=== PATIENT | female | born 1960 | race Caucasian/White ===

== ENCOUNTER 2017-08-05 16:16 | Emergency (ER) | payer OTHER, SELFPAY ==
[~2017-08-05] VITALS: Ht 157.5 cm; Wt 63.5 kg
[~2017-08-05 16:16] MED LIST: ARTHRITIS PO; ATIVAN0.5 MG PO; AZITHROMYCIN 2250 MG PO; BENTYL 20 MG TA20 M1 PO; BISACODYL SUPP10 MG RECTAL; CARAFATE 1 GM TA1 G1 PO; CHOLESTYRAMINE P4 GM PO; CIPRO500 M1 PO; CIPRO500 MG PO; COLACE100 MG PO; COMPAZINE25 MG RECTAL; CYCLOBENZAPRINE5 MG PO; DILAUDID1 MG/1 ML IV PUSH; DIPHENHYDRAM50 MG/M2 IV PUSH; DOC-Q-LACE100 MG PO; ENOXAPARIN40 MG/0.1 SUBQ; FEVERALL650 MG RECTAL; FLAGYL500 M1 PO; FLAGYL500 MG PO; HYDROCODON-ACE1 EAC7 PO; HYDROCODONE-AP1 EAC6 PO; HYDROCODONE-APA1 TA1 PO; HYDROXYZINE; HYDROXYZINE HCL25 M1 PO; HYOSCYAMINE0.125 MG PO; IBUPROFEN 800800 MG PO; IRON325 PO; MACROBID 100 M100 M2 PO; MIRALAX17 GM PO; MIRALAX255 GM PO; MOBIC15 MG PO; MOBIC7.5 MG PO; NAPROSYN500 MG PO; NEO-POLYMYXIN-H10 ML OT; NORCO 5-325 TA1 EACH PO; OCEAN45 ML NASAL; ONDANSETRON HCL4 M2 PO; PANTOPRAZOLE SO40 M1 PO; PAXIL 20 MG TAB20 M1 PO; PAXIL10 MG; PHENERGAN 25 MG25 M1 PO; PHENERGAN 25 MG25 MG PO; PROTONIX PO; PROTONIX40 M1 PO; PROZAC10 MG; PROZAC20 MG PO; REGLAN 10 MG TA10 MG PO; REGLAN 5 MG TAB5 MG PO; SENOKOT-S1 TA1 PO; TPN ELECTROLYTE20 ML IV; TRAZODONE 150150 M1 PO; TRAZODONE HCL100 MG; TRAZODONE HCL50 MG PO; ULTRACET TABLE1 EACH PO; ULTRACET TABLET1 TAB PO; UNASYN 3 GM VIAL3 G1 IVPB; VISTARIL 25 MG25 M1 PO; ZANAFLEX4 MG PO; ZOFRAN IV PUSH; ZOFRAN ODT4 MG PO
[2017-08-05] MEDS ORDERED: CARAFATE 1 GM TA1 G1 PO (16:32)
[2017-08-05] MEDS ORDERED: ATIVAN1 MG PO (16:33)
[2017-08-05 16:53] LABS: ABSOLUTE BASOPHILS 0.1 thou/uL (0.0-0.2); ABSOLUTE LYMPHOCYTES 1.5 thou/uL (0.8-5.3); ABSOLUTE MONOCYTES 0.4 thou/uL (0.0-1.2); ABSOLUTE NEUTROPHILS 6.4 thou/uL (1.6-8.1); EOSINOPHILS 0.5 %; HEMATOCRIT 39.1 % (37.0-47.0); LYMPHOCYTES 17.7 %; MCH 28.5 pg (26.0-34.0); MCHC 33.2 g/dL (28.0-37.0); MCV 85.8 fL (80.0-100.0); MONOCYTES 4.8 %; MPV 7.6 fl. (7.2-11.1); NUCLEATED RBCS 0 /100WBC; PLATELET COUNT* 338 thou/uL (150-400); RBC 4.56 mil/uL (4.20-5.00); RDW-CV 14.5 % (10.5-14.5); WBC 8.5 thou/uL (4.0-11.0)
[2017-08-05 17:00] LABS: CALCIUM 9.4 mg/dL (8.5-10.1); CREATININE 0.9 mg/dL (0.6-1.3); POTASSIUM 3.7 mmol/L (3.5-5.1)
[2017-08-05 17:05] LABS: ALBUMIN 3.5 g/dL (3.4-5.0); TOTAL BILIRUBIN 0.2 mg/dL (<0.1-1.0); TOTAL PROTEIN 8.6 g/dL (6.4-8.2)
[2017-08-05 17:30] LABS: ALCOHOL < 10 mg/dL (<10); SALICYLATE < 2.8 mg/dL (2.8-20.0)
[2017-08-05 17:33] LABS: ACETAMINOPHEN < 2 ug/mL (10-30)
[2017-08-05 18:17] LABS: URINE BILIRUBIN NEGATIVE (Negative); URINE BLOOD NEGATIVE (Negative); URINE CLARITY CLEAR; URINE COLOR YELLOW; URINE GLUCOSE-RANDOM NEGATIVE (Negative); URINE KETONES NEGATIVE (Negative); URINE LEUKOCYTES-REFLEX NEGATIVE (Negative); URINE NITRITE-REFLEX NEGATIVE (Negative); URINE PROTEIN NEGATIVE (Negative); URINE UROBILINOGEN 0.2 E.U./dl (0.2-1.0)
[2017-08-05 18:24] LABS: AMP/METHAMP POSITIVE (Negative); BARBITURATES Negative (Negative); BENZODIAZEPINES Negative (Negative); COCAINE Negative (Negative); METHADONE Negative (Negative); OPIATES Negative (Negative); PCP Negative (Negative); THC Negative (Negative)
[2017-08-05 20:41] VITALS: BP 146/74
== END 2017-08-05 20:42 | disposition home or self-care (01) ==
LOC: M.ERS 16:16
PROVIDERS: Family Medicine
DX: F32.9 Major depressive disorder, single episode, unspecified (principal); R45.851 Suicidal ideations; Z86.2 Personal history of diseases of the blood and blood-forming organs and certain disorders involving the immune mechanism; Z88.8 Allergy status to other drugs, medicaments and biological substances

== ENCOUNTER → 2017-11-09 | Outpatient (CLI) | payer OTHER ==
[~2017-11-09] MED LIST changes: +ATIVAN1 MG PO; +CEFDINIR300 MG PO; +ZANAFLEX2 MG PO; +ZOFRAN ODT4 MG DISSOLVE
== END ==
LOC: M.RAD 15:25
DX: Z12.31 Encounter for screening mammogram for malignant neoplasm of breast (principal)

== ENCOUNTER → 2017-11-18 | Outpatient (CLI) | payer OTHER | LOC: M.RAD 08:57 | DX: N91.2 Amenorrhea, unspecified (principal); M25.552 Pain in left hip; F41.8 Other specified anxiety disorders; Z78.0 Asymptomatic menopausal state ==

== ENCOUNTER 2017-12-17 13:36 | Inpatient (IN) | payer OTHER, SELFPAY ==
[2017-12-17] VITALS (8 sets, daily range): BP systolic 82–140; BP diastolic 40–77
[~2017-12-17] VITALS: Ht 157.5 cm; Wt 79.4 kg
[~2017-12-17 13:36] MED LIST changes: -CEFDINIR300 MG PO; -ZANAFLEX2 MG PO; -ZOFRAN ODT4 MG DISSOLVE
[2017-12-17] MEDS ORDERED: ZANAFLEX2 MG PO (13:37)
[2017-12-17] MEDS ORDERED: PROZAC20 MG PO (13:38)
[2017-12-17] MEDS ORDERED: PROTONIX40 M1 PO (13:39)
[2017-12-17] MEDS ORDERED: ZOFRAN ODT4 MG DISSOLVE (13:40)
[2017-12-17] MEDS ORDERED: CEFDINIR300 MG PO (13:40)
[2017-12-17 14:16] LABS: ABSOLUTE BASOPHILS 0.1 thou/uL (0.0-0.2); ABSOLUTE EOSINOPHILS 0.1 thou/uL (0.0-0.7); ABSOLUTE LYMPHOCYTES 1.9 thou/uL (0.8-5.3); ABSOLUTE MONOCYTES 0.5 thou/uL (0.0-1.2); ABSOLUTE NEUTROPHILS 4.1 thou/uL (1.6-8.1); BASOPHILS 1.1 %; EOSINOPHILS 1.8 %; HEMATOCRIT 36.6 % (37.0-47.0); HEMOGLOBIN 11.9 gm/dL (12.0-15.0); LYMPHOCYTES 27.9 %; MCH 26.3 pg (26.0-34.0); MCHC 32.6 g/dL (28.0-37.0); MCV 80.6 fL (80.0-100.0); MONOCYTES 7.2 %; MPV 8.1 fl. (7.2-11.1); NUCLEATED RBCS 0 /100WBC; PLATELET COUNT* 268 thou/uL (150-400); RBC 4.54 mil/uL (4.20-5.00); WBC 6.7 thou/uL (4.0-11.0)
[2017-12-17 14:18] LABS: CALCIUM 8.9 mg/dL (8.5-10.1); CREATININE 0.9 mg/dL (0.6-1.3); POTASSIUM 3.4 mmol/L (3.5-5.1)
[2017-12-17 14:23] LABS: ALBUMIN 3.3 g/dL (3.4-5.0); TOTAL BILIRUBIN 0.2 mg/dL (<0.1-1.0); TOTAL PROTEIN 7.9 g/dL (6.4-8.2)
[2017-12-17 14:29] LABS: SALICYLATE < 2.8 mg/dL (2.8-20.0)
[2017-12-17 14:30] LABS: ACETAMINOPHEN < 2 ug/mL (10-30); ALCOHOL < 10 mg/dL (<10)
[2017-12-17 14:52] LABS: URINE BILIRUBIN NEGATIVE (Negative); URINE BLOOD NEGATIVE (Negative); URINE CLARITY CLEAR; URINE COLOR STRAW; URINE GLUCOSE-RANDOM NEGATIVE (Negative); URINE KETONES NEGATIVE (Negative); URINE LEUKOCYTES-REFLEX NEGATIVE (Negative); URINE NITRITE-REFLEX NEGATIVE (Negative); URINE PROTEIN NEGATIVE (Negative); URINE SPECIFIC GRAVITY 1.015 (1.005-1.030); URINE UROBILINOGEN 0.2 E.U./dl (0.2-1.0)
[2017-12-17 15:01] LABS: AMP/METHAMP Negative (Negative); BARBITURATES Negative (Negative); BENZODIAZEPINES Negative (Negative); COCAINE Negative (Negative); METHADONE Negative (Negative); OPIATES Negative (Negative); PCP Negative (Negative); THC POSITIVE (Negative)
[2017-12-18] VITALS (12 sets, daily range): BP systolic 78–110; BP diastolic 41–55
[2017-12-18 03:58] LABS: ABSOLUTE BASOPHILS 0.1 thou/uL (0.0-0.2); ABSOLUTE EOSINOPHILS 0.1 thou/uL (0.0-0.7); ABSOLUTE LYMPHOCYTES 1.4 thou/uL (0.8-5.3); ABSOLUTE MONOCYTES 0.4 thou/uL (0.0-1.2); ABSOLUTE NEUTROPHILS 3.8 thou/uL (1.6-8.1); BASOPHILS 1.1 %; HEMATOCRIT 31.2 % (37.0-47.0); HEMOGLOBIN 10.1 gm/dL (12.0-15.0); LYMPHOCYTES 24.8 %; MCH 26.2 pg (26.0-34.0); MCHC 32.2 g/dL (28.0-37.0); MCV 81.2 fL (80.0-100.0); MONOCYTES 6.8 %; NUCLEATED RBCS 0 /100WBC; PLATELET COUNT* 231 thou/uL (150-400); POLYS 65.3 %; RBC 3.85 mil/uL (4.20-5.00); RDW-CV 16.3 % (10.5-14.5); WBC 5.8 thou/uL (4.0-11.0)
[2017-12-18 04:00] LABS: CALCIUM 7.9 mg/dL (8.5-10.1); CREATININE 0.9 mg/dL (0.6-1.3)
[2017-12-19] VITALS: BP 96/49
[2017-12-19 04:05] VITALS: BP 91/53
[2017-12-19 05:07] LABS: ABSOLUTE EOSINOPHILS 0.1 thou/uL (0.0-0.7); ABSOLUTE LYMPHOCYTES 1.7 thou/uL (0.8-5.3); ABSOLUTE MONOCYTES 0.4 thou/uL (0.0-1.2); ABSOLUTE NEUTROPHILS 3.8 thou/uL (1.6-8.1); BASOPHILS 0.8 %; HEMATOCRIT 29.1 % (37.0-47.0); HEMOGLOBIN 9.5 gm/dL (12.0-15.0); LYMPHOCYTES 28.2 %; MCH 26.4 pg (26.0-34.0); MCHC 32.6 g/dL (28.0-37.0); MCV 80.8 fL (80.0-100.0); MONOCYTES 6.8 %; MPV 8.5 fl. (7.2-11.1); NUCLEATED RBCS 0 /100WBC; PLATELET COUNT* 207 thou/uL (150-400); POLYS 62.2 %; RDW-CV 15.6 % (10.5-14.5); WBC 6.1 thou/uL (4.0-11.0)
[2017-12-19 05:53] LABS: ALBUMIN 2.4 g/dL (3.4-5.0); CALCIUM 7.9 mg/dL (8.5-10.1); CREATININE 0.9 mg/dL (0.6-1.3); POTASSIUM 3.9 mmol/L (3.5-5.1); TOTAL BILIRUBIN 0.2 mg/dL (<0.1-1.0); TOTAL PROTEIN 5.6 g/dL (6.4-8.2)
[2017-12-19 07:30] VITALS: BP 97/52
[2017-12-19 11:37] VITALS: BP 102/54
[2017-12-20 10:11] LABS: CK TOTAL (MAYO) 41 U/L (24-173)
--- NOTE | 2017-12-20 11:27 | EKG ---
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 : 1960 Requested By: Mikhail Garcia Order Number: [id number] MD: Denver Bobby Measurements Intervals [place] Rate: 80 P: 33 NH: 143 QRS: 55 QRSD: 86 T: 64 QT: 407 QTc: 470 Interpretive Statements Sinus rhythm Abnormal R-wave progression, early transition Borderline repolarization abnormality Compared to ECG 10/24/2016 21:54:11 No significant changes Electronically Signed On 12-20-2017 11:27:03 CDT by Denver Bobby [email or web address] <ELECTRONICALLY SIGNED> By: Denver Bobby MD, [facility] 12/20/17 1127 1342 1342 Denver Bobby MD, [facility] /EPI
[2017-12-21 19:12] LABS: CK MACRO TYPE I 0 % (Not Observed); CK MACRO TYPE II 0 % (Not Observed); CPK BB (%) 0 % (0); CPK MM (%) 100 % (97-100)
== END 2017-12-19 14:39 | DRG 917 ==
LOC: M.ERS 13:36 → M.2W 15:44 → M.TBA-ER 15:44 → M.ICU 15:44 → M.2W 12-18 16:55
PROVIDERS: Emergency Medicine Emergency Medical Services; ADMIT Internal Medicine
DX: T42.4X2A Poisoning by benzodiazepines, intentional self-harm, initial encounter (principal); G93.40 Encephalopathy, unspecified; T43.222A Poisoning by selective serotonin reuptake inhibitors, intentional self-harm, initial encounter; T43.212A Poisoning by selective serotonin and norepinephrine reuptake inhibitors, intentional self-harm, initial encounter; D64.9 Anemia, unspecified; F41.9 Anxiety disorder, unspecified; F32.9 Major depressive disorder, single episode, unspecified; F12.10 Cannabis abuse, uncomplicated; Z88.8 Allergy status to other drugs, medicaments and biological substances; Y92.89 Other specified places as the place of occurrence of the external cause; Z90.49 Acquired absence of other specified parts of digestive tract; Z90.721 Acquired absence of ovaries, unilateral; Z90.711 Acquired absence of uterus with remaining cervical stump; Z98.890 Other specified postprocedural states

== ENCOUNTER 2018-03-02 20:06 | Inpatient (IN) | payer OTHER, SELFPAY ==
[~2018-03-02] VITALS: Ht 157.5 cm; Wt 72.1 kg
[~2018-03-02 20:06] MED LIST changes: +CEFDINIR300 MG PO; +ZANAFLEX2 MG PO; +ZOFRAN ODT4 MG DISSOLVE
[2018-03-02 20:17] VITALS: BP 137/71
[2018-03-02 20:35] LABS: ABSOLUTE BASOPHILS 0.1 thou/uL (0.0-0.2); ABSOLUTE EOSINOPHILS 0.2 thou/uL (0.0-0.7); ABSOLUTE MONOCYTES 0.6 thou/uL (0.0-1.2); ABSOLUTE NEUTROPHILS 4.6 thou/uL (1.6-8.1); BASOPHILS 1.3 %; EOSINOPHILS 2.1 %; HEMATOCRIT 32.2 % (37.0-47.0); HEMOGLOBIN 10.5 gm/dL (12.0-15.0); LYMPHOCYTES 26.8 %; MCH 25.8 pg (26.0-34.0); MCHC 32.5 g/dL (28.0-37.0); MCV 79.5 fL (80.0-100.0); MONOCYTES 7.5 %; MPV 7.8 fl. (7.2-11.1); NUCLEATED RBCS 0 /100WBC; PLATELET COUNT* 332 thou/uL (150-400); POLYS 62.3 %; RBC 4.05 mil/uL (4.20-5.00); RDW-CV 17.4 % (10.5-14.5); WBC 7.5 thou/uL (4.0-11.0)
[2018-03-02 20:47] LABS: ANION GAP 6 mmol/L (7-16); BUN 21 mg/dL (7-18); CALCIUM 8.4 mg/dL (8.5-10.1); CHLORIDE 104 mmol/L (98-107); CO2 29 mmol/L (21-32); GLUCOSE 123 mg/dL (70-99); POTASSIUM 3.6 mmol/L (3.5-5.1); SODIUM 139 mmol/L (136-145)
[2018-03-02 20:49] LABS: APTT 24.6 Seconds (25.0-31.3); PROTIME 9.4 Seconds (9.20-11.50)
[2018-03-02 21:02] LABS: ALKALINE PHOSPHATASE 98 U/L (46-116); CK-MB MASS < 0.5 ng/mL (<0.5-3.6); LIPASE 251 U/L (73-393); MAGNESIUM 2.2 mg/dL (1.8-2.4); NT-PRO BRAIN NAT PEPTIDE 90 pg/mL (<300); SGOT 21 U/L (15-37); SGPT 16 U/L (30-65); TOTAL BILIRUBIN 0.1 mg/dL (<0.1-1.0); TOTAL PROTEIN 7.8 g/dL (6.4-8.2); TROPONIN-I LEVEL <0.06 ng/mL (<0.06)
[2018-03-02 22:00] VITALS: BP 101/53
[2018-03-02 22:36] VITALS: BP 105/52
[2018-03-03 04:00] VITALS: BP 101/60
--- NOTE | 2018-03-03 08:03 | NUR ---
PT ADMITTED TO ROOM 214 DURING THIS SHIFT; VSS, A+OX4, DENIES CHEST PAIN, SR ON TELEMETRY. SHE IS ABLE TO COMMUNICATE HER NEEDS TO STAFF EFFECTIVELY. SHE HAS DENIED THE NEED FOR PAIN MEDICATION UP TO THIS TIME. SHE HAS BEEN NPO SINCE MIDNIGHT FOR A POSSIBLE CARDIOLOGY, OR OTHER SPECIALTY, CONSULT THIS MORNING.
[2018-03-03 08:44] VITALS: BP 115/63
--- NOTE | 2018-03-03 10:19 | NUR ---
Pt is A&O. Resides at home. Independent with ADLs. No DME. No hx of HH or SNF. Cardiology following, planned stress test today. Goal is home at dc. Following.
--- NOTE | 2018-03-03 10:34 | NUR ---
ASSESSMENT COMPLETED REFER TO COMPUTER CHARTING. 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 BED IN LOW AND LOCKED POSITION. CALL LIGHT WITHIN REACH. PATIENT REPORTING NO PAIN, NAUSEA OR SHORTNESS OF BREATH. BED IN LOW AND LOCKED POSITION. IV SALINE LOCKED, ON ROOM AIR. WILL CONTINUE TO MONITOR THIS SHIFT.
[2018-03-03 11:38] LABS: ALBUMIN 2.7 g/dL (3.4-5.0); CALCIUM 8.2 mg/dL (8.5-10.1); CREATININE 0.8 mg/dL (0.6-1.3); POTASSIUM 3.8 mmol/L (3.5-5.1); TOTAL BILIRUBIN 0.2 mg/dL (<0.1-1.0); TOTAL PROTEIN 7.1 g/dL (6.4-8.2)
--- NOTE | 2018-03-03 11:43 | 2DMMODE ---
[place] [address] 2 D/M-MODE ECHOCARDIOGRAM Name: TORIBIOARCHIE Room: [facility] IN [facility]#: [id number] Admission: 03/02/18 Attend Phys: Shaheen Elliott, Discharge: Date of : 64 Date of Service: 03/03/18 1142 Report #: [id number] THIS REPORT FOR: //name// APPROVED REPORT Study performed: 03/03/2018 09:43:57 EXAM: Comprehensive 2D, Doppler, and color-flow Echocardiogram Patient Location: In-Patient Room #: 214 Status: routine BSA: 1.73 HR: 56 bpm BP: 115/63 mmHg Rhythm: NSR Other Information Study Quality: Good Indications Chest Pain r/o effusion 2D Dimensions LVEF(%): 73.03 (>50%) IVSd: 8.32 (7-11mm) LVOT Diam: 19.87 (18-24mm) LVDd: 44.58 mm PWd: 8.05 (7-11mm) Ascending Ao: 27.54 (22-36mm) LVDs: 25.90 (25-40mm) Aortic Root: 29.80 mm Albert's LVEF: 73.03 % Volumes Left Atrial Volume (Systole) LA ESV Index: 33.60 mL/m2 Aortic Valve AoV Peak Pineda.: 1.08 m/s AO Peak Gr.: 4.63 mmHg LVOT Max P.81 mmHg AO Mean Gr.: 2.28 mmHg LVOT Mean P.19 mmHg LVOT Max V: 0.84 m/s AO V2 VTI: 27.10 cm LVOT Mean V: 0.49 m/s TORRES (VTI): 2.58 cm2 LVOT V1 VTI: 22.53 [place] [address] 2 D/M-MODE ECHOCARDIOGRAM Name: ARCHIE ROONEY Room: [address] IN .R.#: [id number] Admission: 03/02/18 Attend Phys: Shaheen Elliott, Discharge: Date of : 64 Date of Service: 03/03/18 1142 Report #: [id number] E/A Ratio: 1.60 MV Decel. Time: 185.20 ms MV E Max Pineda.: 1.03 m/s MV PHT: 53.71 ms MVA (PHT): 4.10 cm2 TDI E/Lateral E': 8.58 E/Medial E': 8.58 Medial E' Pineda.: 0.12 m/s Lateral E' Pineda.: 0.12 m/s Pulmonary Valve PV Peak Pineda.: 0.80 m/s PV Peak Gr.: 2.56 mmHg Tricuspid Valve RAP Estimate: 5.00 mmHg TR Peak Gr.: 15.49 mmHg RVSP: 20.49 mmHg PA Pressure: 20.49 mmHg Left Ventricle The left ventricle is normal size. There is normal LV segmental wall motion. There is normal left ventricular wall thickness. Left ventricular systolic function is normal. The left ventricular ejection fraction is within the normal range. LVEF is 55-60%. The left ventricular diastolic function is normal. Right Ventricle The right ventricle is normal size. The right ventricular systolic function is normal. Atria The left atrium size is normal. The right atrium size is normal. Aortic Valve The aortic valve is normal in structure. No aortic regurgitation is present. There is no aortic valvular stenosis. Mitral Valve The mitral valve is normal in structure. There is no mitral valve regurgitation noted. No evidence of mitral valve stenosis. Tricuspid Valve The tricuspid valve is normal in structure. Trace tricuspid regurgitation. [place] [address] 2 D/M-MODE ECHOCARDIOGRAM Name: ARCHIE ROONEY Room: [address] IN M.R.#: [id number] Admission: 03/02/18 Attend Phys: Shaheen Elliott, Discharge: Date of : 64 Date of Service: 03/03/18 1142 Report #: [id number] Pulmonic Valve The pulmonary valve is normal in structure. Mild pulmonic regurgitation. Great Vessels The aortic root is normal in size. IVC is normal in size and collapses with >50% inspiration Pericardium There is no pericardial effusion. <Conclusion> The left ventricle is normal size. There is normal left ventricular wall thickness. Left ventricular systolic function is normal. The left ventricular ejection fraction is within the normal range. LVEF is 55-60%. The left ventricular diastolic function is normal. The right ventricle is normal size. The left atrium size is normal. The aortic valve is normal in structure. The mitral valve is normal in structure. The tricuspid valve is normal in structure. IVC is normal in size and collapses with >50% inspiration There is no pericardial effusion. There is normal LV segmental wall motion. <ELECTRONICALLY SIGNED> By: Denver Bobby MD, FACC 03/03/18 1142 1142 1142 Denver Bobby MD, FACC /INF
[2018-03-03 12:00] VITALS: BP 95/45
--- NOTE | 2018-03-03 15:54 | EKG ---
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 : 1960 Requested By: Jassi Loyola Order Number: [id number] MD: Denver Bobby Measurements Intervals [place] Rate: 90 P: 57 NC: 142 QRS: 60 QRSD: 84 T: 40 QT: 386 QTc: 473 Interpretive Statements Sinus rhythm Probable left atrial enlargement Borderline ST depression, anterior leads Compared to ECG 12/17/2017 13:42:54 ST (T wave) deviation now present Electronically Signed On 03-03-2018 15:54:20 CDT by Denver Bobby [email or web address] <ELECTRONICALLY SIGNED> By: Denver Bobby MD, [facility] 03/03/18 1554 13 13 Denver Bobby MD, [facility] /EPI
--- NOTE | 2018-03-03 15:56 | EKG ---
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: : 1960 Requested By: Jassi Loyola Order Number: [id number] Sushant MD: Denver Bobby Measurements Intervals [place] Rate: 56 P: 38 MA: 174 QRS: 65 QRSD: 85 T: 52 QT: 480 QTc: 464 Interpretive Statements Sinus rhythm Abnormal R-wave progression, early transition Compared to ECG 12/17/2017 13:42:54 No significant changes Electronically Signed On 03-03-2018 15:56:11 CDT by Denver Bobby [email or web address] <ELECTRONICALLY SIGNED> By: Denver Bobby MD, [facility] 03/03/18 1556 1 1 Denver Bobby MD, [facility] /EPI
--- NOTE | 2018-03-03 15:56 | EKG ---
[place] [address] ELECTROCARDIOGRAM REPORT Name: TORIBIORUSSELL LEWISELA SAAD Room: [address] ADM IN M.R.#: [id number] Admission: 03/02/18 Attend Phys: Shaheen Elliott MD Discharge: Date of : 64 Report #: [id number] THIS REPORT FOR: //name// [facility] Test Date: 2018-03-03 Test Time: 03:42:01 Pat Name: ARCHIE ROONEY Department: Room: [address] Gender: F Informatica: DARSHANA : 1960 Requested By: Jassi Loyola Order Number: [id number] Sushant MD: Denver Bobby Measurements Intervals [place] Rate: 57 P: 51 SD: 189 QRS: 61 QRSD: 87 T: 53 QT: 471 QTc: 459 Interpretive Statements Sinus rhythm Baseline wander in lead(s) V4 Compared to ECG 12/17/2017 13:42:54 No significant changes Electronically Signed On 03-03-2018 15:55:54 CDT by Denver Bobby [email or web address] <ELECTRONICALLY SIGNED> By: Denver Bobby MD, [facility] 03/03/18 1555 0342 0342 Denver Bobby MD, [facility] /EPI
[2018-03-03 16:53] VITALS: BP 95/45
--- NOTE | 2018-03-03 17:00 | CARDNUC ---
[place] [address] CARDIAC NUCLEAR IMAGING REPORT Name: ARCHIE ROONEY Room: [address] IN [facility]#: [id number] Admission: 03/02/18 Attend Phys: Shaheen Elliott, Discharge: Date of : 64 Date of Service: 03/03/18 1700 Report #: [id number] THIS REPORT FOR: //name// APPROVED REPORT Imaging Protocol: Rest Tc-99m/Stress Tc-99m 1 day Study performed: 03/03/2018 09:38:00 Indication: chest pain Patient Location: In-Patient Room #: 214 Stress Tech: Kylie Muñoz Stress Nurse: Yolanda Rubin RN NM Tech:TANO Rodriguez Ht: 5 ft 2 in Wt: 170 lbs BSA: 1.78 m2 BMI: 31.09 Medical History Medical History: hyperlipidemia Allergies: venlafoxine, quetiapine, vilazodone Cardiac Risk Factors: age, hyperlipidemia, family hx Exercise History: Physically active Resting Data Rest SPECT myocardial perfusion imaging was performed in supine position 30 minutes following the intravenous injection of 11.6 mCi of Tc-99m Sestamibi. Time of rest injection: 1400 Date: 03/03/2018 Time of rest imagin The images were gated to evaluate regional wall motion and calculate left ventricular ejection fraction. Administration Route: IV Administration Site: Left Hand Pharmacologic Stress Pharmacologic stress test was performed by injecting Regadenoson 0.4 mg IV push over 10-15 seconds immediately followed by the intravenous injection of 36.0 mCi of Tc-99m Sestamibi. Time of stress injection: 1515 Date: 03/03/2018 Time of stress imagin Administration Route: IV Administration Site: Left Hand Gated Stress SPECT was performed 40 minutes [place] [address] CARDIAC NUCLEAR IMAGING REPORT Name: ARCHIE ROONEY Room: [address] IN ..#: [id number] Admission: 03/02/18 Attend Phys: Shaheen Elliott, Discharge: Date of : 64 Date of Service: 03/03/18 1700 Report #: [id number] The images were gated to evaluate regional wall motion and calculate left ventricular ejection fraction. Prone imaging was performed. Stress Test Details Stress Test: Pharmacologic stress testing performed using 0.4 mg of regadenoson per 5 mL given IV over 10 seconds. Reason for pharmacologic stress test: murmer. HR Max Heart Rate (APMHR): 165 bpm Resting HR: 64 bpm Target HR (85% APMHR): 140 bpm Max HR Achieved: 90 bpm % of APMHR: 54 Recovery HR: 79 bpm BP Resting BP: 127/78 mmHg Recovery BP: 116/64 mmHg ECG Resting ECG: Sinus Rhythm, normal EKG Stress ECG: Sinus Rhythm, normal EKG ST Change: None Arrhythmia: None Recovery ECG: Sinus Rhythm, normal EKG Recovery ST Change: None Recovery Arrhythmia: None Clinical Reason for Termination: Completed protocol Stress Symptoms: none The patient tolerated Lexiscan infusion without significant symptoms. Stress ECG Conclusion The baseline 12-lead EKG shows normal sinus rhythm with no significant ST or T wave abnormality. EKGs obtained during and post Lexiscan infusion show sinus rhythm with changes when compared to baseline. There were no significant stress-induced arrhythmias. Study Quality Study: Good Artifact: [place] [address] CARDIAC NUCLEAR IMAGING REPORT Name: ARCHIE ROONEY Room: [address]#: [id number] Admission: 03/02/18 Attend Phys: Shaheen Elliott, Discharge: Date of : 64 Date of Service: 03/03/18 1700 Report #: [id number] At rest, the left ventricular ejection fraction was 87%.. Post stress, the left ventricular ejection was 86%.. TID = 0.86. Perfusion Normal left ventricular perfusion. Wall Motion Normal left ventricular wall motion. Nuclear Conclusion ECG Findings: negative for ischemia Clinical Findings: negative for ischemia Nuclear Findings: negative for ischemia Exercise Capacity: not assessed Left Ventricular Function: normal Risk Study: low Myocardial perfusion images show no defect to suggest ischemia or infarction. Left ventricular systolic function appears normal on gated studies. This is a low risk study. <Conclusion> The baseline 12-lead EKG shows normal sinus rhythm with no significant ST or T wave abnormality. EKGs obtained during and post Lexiscan infusion show sinus rhythm with changes when compared to baseline. There were no significant stress-induced arrhythmias. <ELECTRONICALLY SIGNED> By: Geovani Pitts MD, [facility] 03/03/181699 99 99 Geovani Pitts MD, FACC /INF
== END 2018-03-03 17:45 | disposition home or self-care (01) | DRG 392 ==
LOC: M.ERS 20:06 → M.2W 21:11 → M.TBA-ER 21:11 → M.2W 22:04
PROVIDERS: Family Medicine; Internal Medicine; ADMIT Internal Medicine
DX: K21.9 Gastro-esophageal reflux disease without esophagitis (principal); J98.11 Atelectasis; E44.0 Moderate protein-calorie malnutrition; R07.89 Other chest pain; M79.1 Myalgia; F32.9 Major depressive disorder, single episode, unspecified; R11.2 Nausea with vomiting, unspecified; E78.5 Hyperlipidemia, unspecified; Z96.642 Presence of left artificial hip joint; Z98.891 History of uterine scar from previous surgery; Z91.5 Personal history of self-harm; Z90.49 Acquired absence of other specified parts of digestive tract; Z90.710 Acquired absence of both cervix and uterus; Z90.721 Acquired absence of ovaries, unilateral; Z79.899 Other long term (current) drug therapy; Z88.8 Allergy status to other drugs, medicaments and biological substances; Z82.49 Family history of ischemic heart disease and other diseases of the circulatory system; Z80.8 Family history of malignant neoplasm of other organs or systems

== ENCOUNTER → 2018-11-07 | Outpatient (CLI) | payer OTHER, SELFPAY | LOC: M.RAD 14:18 → M.ULTRA 14:18 | DX: Z12.31 Encounter for screening mammogram for malignant neoplasm of breast (principal); R10.2 Pelvic and perineal pain; Z90.710 Acquired absence of both cervix and uterus; Z90.721 Acquired absence of ovaries, unilateral ==